=== PATIENT | male | born 1955 | race Caucasian/White ===

== ENCOUNTER 2018-09-01 01:33 | Observation (INO) | payer MEDICARE ==
[2018-09-01] VITALS (7 sets, daily range): BP systolic 113–134; BP diastolic 71–105
[~2018-09-01] VITALS: Ht 175.3 cm; Wt 100.0 kg
[~2018-09-01 01:33] MED LIST: AMIT-189 PO; AMLO2.5T4 PO; ASPI-1265 PO; ATOR-2 PO; CARV-49 PO; CLOP75TA15 PO; CYCL-394 PO; DEXL60CA3 PO; FENO134C PO; HYDR-4353 PO; KRIL1CAP22 PO; LISI10TA4 PO; MELA3TAB PO; MULT-1085 PO; SERT25TA PO; TERA5CAP4 PO; UBID30CA8 PO; WEL75T PO; [UNRECOGNIZED DRUG - CODE] PO
[2018-09-01 02:16] LABS: BASOPHILS # (AUTO) 0.1 X10'3 (0-0.2); EOSINOPHILS # (AUTO) 0.3 X10'3 (0-0.9); EOSINOPHILS % (AUTO) 4.1 % (0-6); HEMATOCRIT 37.2 % (42.0-52.0); HEMOGLOBIN 13.1 g/dl (14.0-17.9); LYMPHOCYTES # (AUTO) 2.3 X10'3 (1.1-4.8); LYMPHOCYTES % (AUTO) 29.8 % (21-51); MEAN CORPUSCULAR HEMOGLOBIN 31.6 PG (27.0-31.0); MEAN CORPUSCULAR HGB CONC 35.2 g/dL (33.0-36.5); MEAN CORPUSCULAR VOLUME 89.8 FL (78-98); MEAN PLATELET VOLUME 7.9 FL (7.4-10.4); MONOCYTES # (AUTO) 0.7 X10'3 (0-0.9); MONOCYTES % (AUTO) 8.9 % (2-12); NEUTROPHILS # (AUTO) 4.3 X10'3 (1.8-7.7); NEUTROPHILS % (AUTO) 56.2 % (42-75); PLATELET COUNT 218 X10'3 (140-440); RED BLOOD COUNT 4.14 X10'6 (4.70-6.10); RED CELL DISTRIBUTION WIDTH 13.4 % (11.5-14.5); WHITE BLOOD COUNT 7.7 X10'3 (4.5-11.0)
[2018-09-01 02:21] LABS: ALANINE AMINOTRANSFERASE 35 U/L (12-78); ALBUMIN 3.7 G/DL (3.4-5.0); ALBUMIN/GLOBULIN RATIO 1.3 (1.1-1.5); ALKALINE PHOSPHATASE 83 IU/L (46-116); ANION GAP 10 (8-16); ASPARTATE AMINO TRANSFERASE 13 U/L (10-37); BILIRUBIN,TOTAL 0.1 MG/DL (0.1-1.0); BLOOD UREA NITROGEN 24 MG/DL (7-18); BUN/CREATININE RATIO 32.9 (5.4-32.0); CALCIUM 8.4 MG/DL (8.5-10.1); CHLORIDE 108 MMOL/L (99-107); CREATININE 0.73 MG/DL (0.60-1.10); GLUCOSE 118 MG/DL (70-104); POTASSIUM 3.4 MMOL/L (3.5-5.1); SODIUM 142 MMOL/L (135-145); TOTAL CARBON DIOXIDE 23.7 MMOL/L (24-32); TOTAL PROTEIN 6.5 G/DL (6.4-8.2); eGFR > 90 ML/MIN
[2018-09-01 02:22] LABS: PARTIAL THROMBOPLASTIN TIME 26 SECONDS (22-32)
[2018-09-01] MEDS ORDERED: aspirin 325mg tablet PO ONE (02:30)
[2018-09-01] MEDS ORDERED: normal saline 1000ml 1,000 ML IV ONE (02:30)
[2018-09-01] MEDS ORDERED: OMEP-50 PO (02:44)
[2018-09-01] MEDS ORDERED: MELO-102 PO (02:56)
[2018-09-01] MEDS ORDERED: EVOL140S INJ (02:56)
[2018-09-01] MEDS ORDERED: potassium Cl 20mEq in NS 1,000 ML IV SCH (03:04)
[2018-09-01] MEDS ORDERED: potassium CL 10mEq/100ml bag 100 ML IV PRN (03:05)
[2018-09-01] MEDS ORDERED: morphine 2 MG/ML inj. syringe IV PRN ×2 (03:05)
[2018-09-01] MEDS ORDERED: potassium Cl 20 mEq SR tablet PO PRN ×2 (03:05)
[2018-09-01] MEDS ORDERED: magnesium 2GM in 50ml NS 50 ML IV PRN (03:05)
[2018-09-01] MEDS ORDERED: magnesium 4gm in 100ml NS 100 ML IV PRN (03:05)
[2018-09-01] MEDS ORDERED: magnesium Cl slow-release 64mg tablet PO PRN (03:05)
[2018-09-01] MEDS ORDERED: potassium Cl 40MEQ/NS 500ml 500 ML IV PRN (03:05)
[2018-09-01] MEDS ORDERED: magnesium hydroxide 30ml (MOM) UD suspension PO PRN (03:05)
[2018-09-01] MEDS ORDERED: bisacodyl 10mg suppository rectal RC PRN (03:05)
[2018-09-01] MEDS ORDERED: mag hydrox/Alum hydrox/simeth 30ml oral suspension PO PRN (03:05)
[2018-09-01] MEDS ORDERED: acetaminophen 325mg tablet PO PRN (03:05)
[2018-09-01] MEDS ORDERED: ondansetron/PF 4mg/2ml inj IV PRN (03:05)
[2018-09-01] MEDS ORDERED: nitroGLYCERIN 0.4mg SUBLingual tab SL PRN ×2 (03:10)
[2018-09-01] MEDS ORDERED: regadenoson 0.4mg/5ml syringe IV ONE ×2 (03:10→09:25)
[2018-09-01] MEDS ORDERED: aminophylline 250mg/10ml inj. IV PRN (03:10)
[2018-09-01] MEDS ORDERED: metoprolol tartrate 1mg/ml inj IV PRN (03:10)
--- NOTE | 2018-09-01 06:38 | NUR ---
Problems reprioritized. Patient report given, questions answered & plan of care reviewed with Lauren PEÑA.
--- NOTE | 2018-09-01 06:46 | NUR ---
Patient in room [facility]. I have received report from clarice gray and had the opportunity to ask questions and assume patient care.
[2018-09-01] MEDS ORDERED: pantoprazole 40 MG vial IV SCH (08:00)
[2018-09-01] MEDS ORDERED: UBIDECARENONE PO SCH (08:00)
[2018-09-01] MEDS ORDERED: atorvastatin 20mg tablet PO SCH (08:00)
[2018-09-01] MEDS ORDERED: terazosin 5mg capsule PO SCH (08:00)
[2018-09-01] MEDS ORDERED: carvedilol 6.25mg tablet PO SCH (08:00)
[2018-09-01] MEDS ORDERED: K and/or MAG REPLACEMENT MC SCH (08:00)
[2018-09-01] MEDS ORDERED: buPROPion 75mg tablet PO SCH (08:00)
[2018-09-01] MEDS ORDERED: sertraline 50mg tablet PO SCH (08:00)
[2018-09-01] MEDS ORDERED: enoxaparin 40mg/0.4ml syringe SUBCUT SCH (08:00)
[2018-09-01] MEDS ORDERED: aspirin 81mg tab.chew PO SCH (08:00)
[2018-09-01] MEDS ORDERED: multivitamins, therapeutics tablet PO SCH (08:00)
[2018-09-01] MEDS ORDERED: aminophylline inj. 10 ML IV ONE (09:25)
[2018-09-01 10:13] LABS: CHOL/HDL RATIO 2.1 (0.00-4.99); CHOLESTEROL 59 MG/DL (0-200); HDL CHOLESTEROL 28 MG/DL (35-60); LDL CHOLESTEROL 14 MG/DL (50-100); TRIGLYCERIDES 149 MG/DL (20-135)
[2018-09-01] MEDS ORDERED: NITR0.4T51 SL (12:54)
--- NOTE | 2018-09-01 13:51 | NUR ---
PT DISCHARGED IN STABLE CONDITION. LEFT FACILITY WITH . IV DC CANULA INTACT. ALL BELONGINGS IN HAND. FOLLOW UP INSTRUCTIONS GIVEN, ALL QUESTIONS ANSWERED. PT AWARE HOME MEDS NEED TO BE TAKEN, HE DID NOT RECEIVE ANY DURING THIS VISIT DUE TO PROCEDURES. Addendum: 09/01/18 at 1353 by Renu Monge RN Amended: Links added.
[2018-09-01] MEDS ORDERED: OMEP40CA37 PO (16:30)
[2018-09-01] MEDS ORDERED: ATOR20TA66 PO (16:30)
--- NOTE | 2018-09-01 16:40 | NUR ---
DR DELGADO CALLED RE MEDICATION CHANGES THAT HE MADE POST DISCHARGE. LEFT MESSAGE ON MACHINE RE: PT NEEDS TO CALL BACK TO DISCUSS SOME CHANGES. MEDICATIONS CALLED INTO [facility].
[2018-09-01] MEDS ORDERED: amitryptiline 50mg tablet PO SCH (21:00)
[2018-09-01] MEDS ORDERED: Melatonin 3mg tablet PO SCH (21:00)
[2018-09-03] MEDS ORDERED: EVOLOCUMAB IJ SCH (08:00)
== END 2018-09-01 13:54 | disposition home or self-care (01) ==
LOC: ER 01:33 → SUR 3N 03:35 → CMPBEDREQ 04:09
PROVIDERS: ADMIT Internal Medicine; ATTEND Family Medicine
DX: R07.89 Other chest pain (principal); K21.9 Gastro-esophageal reflux disease without esophagitis; E78.5 Hyperlipidemia, unspecified; I10 Essential (primary) hypertension; I25.10 Atherosclerotic heart disease of native coronary artery without angina pectoris; F41.9 Anxiety disorder, unspecified; Z79.82 Long term (current) use of aspirin; Z91.09 Other allergy status, other than to drugs and biological substances; E78.00 Pure hypercholesterolemia, unspecified; Z87.442 Personal history of urinary calculi
CPT/HCPCS: 36415; 71045; 78452; 80053; 80061; 84484; 85025; 85610; 85730; 87070; 93005; 93017; 93306; 99284; A9500; G0378; J0280

== ENCOUNTER 2019-04-13 15:45 | Emergency (ER) | payer MEDICARE ==
[~2019-04-13] VITALS: Ht 177.8 cm; Wt 83.1 kg
[~2019-04-13 15:45] MED LIST changes: -ATOR-2 PO; +ATOR20TA66 PO; -CLOP75TA15 PO; -CYCL-394 PO; -DEXL60CA3 PO; +EVOL140S INJ; -FENO134C PO; -HYDR-4353 PO; -LISI10TA4 PO; -MELA3TAB PO; +MELA3TAB64 PO; +NITR0.4T51 SL; -[UNRECOGNIZED DRUG - CODE] PO
[2019-04-13 16:15] VITALS: BP 126/77
[2019-04-13] MEDS ORDERED: LIDOcaine 1% W/epiNEPHrine 1:100,000 20ml vial SQ ONE (16:25)
== END 2019-04-13 17:30 | disposition home or self-care (01) ==
LOC: ER 15:46
DX: S41.112A Laceration without foreign body of left upper arm, initial encounter (principal); E78.00 Pure hypercholesterolemia, unspecified; I10 Essential (primary) hypertension; K21.9 Gastro-esophageal reflux disease without esophagitis; F12.90 Cannabis use, unspecified, uncomplicated; Z87.442 Personal history of urinary calculi; Z98.890 Other specified postprocedural states; Z88.8 Allergy status to other drugs, medicaments and biological substances; Z79.899 Other long term (current) drug therapy
CPT/HCPCS: 12002; 99284

== ENCOUNTER 2019-05-04 22:05 | Emergency (ER) | payer MEDICARE ==
[~2019-05-04] VITALS: Ht 172.7 cm; Wt 100.0 kg
[~2019-05-04 22:05] MED LIST changes: -EVOL140S INJ; +EVOL140S2 INJ
[2019-05-04] MEDS ORDERED: ondansetron/PF 4mg/2ml inj IV ONE (22:45)
[2019-05-04] MEDS ORDERED: magnesium citrate 296ml oral solution PO ONE (22:45)
[2019-05-04] MEDS ORDERED: normal saline 1000ML IV soln IVB ONE (22:45)
[2019-05-04] MEDS ORDERED: ketorolac trometh. 30mg/ml inj. IV ONE (22:45)
[2019-05-04] MEDS ORDERED: fentaNYL/PF 50MCG/1 ML 2ML syringe IV ONE (23:00)
[2019-05-04 23:15] LABS: OCCULT BLOOD STOOL NEGATIVE (Neg)
[2019-05-04 23:18] LABS: BASOPHILS % (AUTO) 0.4 % (0-1); EOSINOPHILS # (AUTO) 0.2 X10'3 (0-0.9); EOSINOPHILS % (AUTO) 1.7 % (0-6); HEMATOCRIT 37.2 % (42.0-52.0); HEMOGLOBIN 12.7 g/dl (14.0-17.9); LYMPHOCYTES # (AUTO) 1.1 X10'3 (1.1-4.8); LYMPHOCYTES % (AUTO) 9.8 % (21-51); MEAN CORPUSCULAR HEMOGLOBIN 31.2 PG (27.0-31.0); MEAN CORPUSCULAR HGB CONC 34.2 g/dL (33.0-36.5); MEAN CORPUSCULAR VOLUME 91.3 FL (78-98); MEAN PLATELET VOLUME 7.9 FL (7.4-10.4); MONOCYTES # (AUTO) 0.8 X10'3 (0-0.9); NEUTROPHILS # (AUTO) 9.1 X10'3 (1.8-7.7); NEUTROPHILS % (AUTO) 81.1 % (42-75); PLATELET COUNT 219 X10'3 (140-440); RED BLOOD COUNT 4.07 X10'6 (4.70-6.10); RED CELL DISTRIBUTION WIDTH 13.3 % (11.5-14.5); WHITE BLOOD COUNT 11.2 X10'3 (4.5-11.0)
[2019-05-04] MEDS ORDERED: ONDA4TAB6 PO (23:30)
[2019-05-04] MEDS ORDERED: KETO10TA2 PO (23:30)
[2019-05-04] MEDS ORDERED: HYDR-4353 PO (23:30)
[2019-05-04] MEDS ORDERED: TADA20TA PO (23:30)
[2019-05-04 23:33] LABS: ALANINE AMINOTRANSFERASE 26 U/L (12-78); ALBUMIN 4.2 G/DL (3.4-5.0); ALBUMIN/GLOBULIN RATIO 1.4 (1.1-1.5); ALKALINE PHOSPHATASE 62 IU/L (46-116); ANION GAP 10 (8-16); ASPARTATE AMINO TRANSFERASE 17 U/L (10-37); BILIRUBIN,TOTAL 0.4 MG/DL (0.1-1.0); BLOOD UREA NITROGEN 20 MG/DL (7-18); BUN/CREATININE RATIO 15.7 (5.4-32.0); CALCIUM 9.2 MG/DL (8.5-10.1); CHLORIDE 106 MMOL/L (99-107); CREATININE 1.27 MG/DL (0.60-1.10); GLUCOSE 127 MG/DL (70-104); LIPASE 70 U/L (73-393); POTASSIUM 3.7 MMOL/L (3.5-5.1); SODIUM 144 MMOL/L (135-145); TOTAL CARBON DIOXIDE 28.1 MMOL/L (24-32); TOTAL PROTEIN 7.3 G/DL (6.4-8.2); eGFR 57 ML/MIN
--- NOTE | 2019-05-04 23:57 | NUR ---
pt never drank his mag citrate
[2019-05-05 00:13] VITALS: BP 127/73
== END 2019-05-05 00:16 | disposition home or self-care (01) ==
LOC: ER 22:05
DX: N20.0 Calculus of kidney (principal); R10.32 Left lower quadrant pain; E78.00 Pure hypercholesterolemia, unspecified; I10 Essential (primary) hypertension; K21.9 Gastro-esophageal reflux disease without esophagitis; F12.90 Cannabis use, unspecified, uncomplicated; Z87.442 Personal history of urinary calculi; Z98.890 Other specified postprocedural states; Z88.8 Allergy status to other drugs, medicaments and biological substances; Z79.82 Long term (current) use of aspirin; Z79.899 Other long term (current) drug therapy
CPT/HCPCS: 36415; 74176; 80053; 82272; 83690; 84484; 85025; 96374; 96375; 99284; J1885; J2405; J3010; J7030

== ENCOUNTER 2019-11-28 08:49 | Emergency (ER) | payer MEDICARE ==
[~2019-11-28] VITALS: Ht 175.3 cm; Wt 105.0 kg
[~2019-11-28 08:49] MED LIST changes: +KETO10TA2 PO; +MELA3TAB39 PO; -MELA3TAB64 PO; +ONDA4TAB6 PO; +TADA20TA PO
[2019-11-28] MEDS ORDERED: proparacaine 0.5% ophthalmic drops 15ml EACHEYE ONE (09:40)
[2019-11-28] MEDS ORDERED: ciprofloxacin 0.3% 2.5ml ophthalmic solution LEFTEYE ONE (09:40)
[2019-11-28 10:32] VITALS: BP 160/90
== END 2019-11-28 10:36 | disposition home or self-care (01) ==
LOC: ER 08:49
DX: T15.02XA Foreign body in cornea, left eye, initial encounter (principal); E78.00 Pure hypercholesterolemia, unspecified; I10 Essential (primary) hypertension; K21.9 Gastro-esophageal reflux disease without esophagitis; F12.90 Cannabis use, unspecified, uncomplicated; Z87.442 Personal history of urinary calculi; Z98.890 Other specified postprocedural states; Z88.4 Allergy status to anesthetic agent; Z79.82 Long term (current) use of aspirin; Z79.899 Other long term (current) drug therapy; Y92.89 Other specified places as the place of occurrence of the external cause
CPT/HCPCS: 65220; 99284

== ENCOUNTER 2020-02-02 15:19 | Emergency (ER) | payer MEDICARE ==
[~2020-02-02] VITALS: Ht 175.3 cm; Wt 106.8 kg
[2020-02-02 15:31] VITALS: BP 134/76
--- NOTE | 2020-02-02 16:55 | NUR ---
Finger splint applied and secured with gretchen. Neurovascular intact.
== END 2020-02-02 17:11 | disposition home or self-care (01) ==
LOC: ER 15:19
DX: S61.211A Laceration without foreign body of left index finger without damage to nail, initial encounter (principal); E78.00 Pure hypercholesterolemia, unspecified; I10 Essential (primary) hypertension; K21.9 Gastro-esophageal reflux disease without esophagitis; Z98.890 Other specified postprocedural states; F12.90 Cannabis use, unspecified, uncomplicated; Z88.8 Allergy status to other drugs, medicaments and biological substances; Z79.82 Long term (current) use of aspirin; Z79.899 Other long term (current) drug therapy; W45.8XXA Other foreign body or object entering through skin, initial encounter; Y93.89 Activity, other specified; Y92.89 Other specified places as the place of occurrence of the external cause; Y99.8 Other external cause status
CPT/HCPCS: 29125; 29130; 99283

== ENCOUNTER → 2020-10-10 | Emergency (ER) | payer MEDICARE ==
[~2020-10-10] VITALS: Ht 177.8 cm; Wt 99.3 kg
[~2020-10-10] MED LIST changes: +CefTRIAXone 2gm/D5W 50ml BAG 50 ML IV ONE; +ONDA4TAB12 PO; +UBID30CA20 PO; -UBID30CA8 PO; +ketorolac trometh. 30mg/ml inj. IV ONE; +normal saline 1000ml 1,000 ML IV ONE; +ondansetron/PF 4mg/2ml inj IV ONE
[2020-10-10 17:02] LABS: BASOPHILS # (AUTO) 0.1 X10'3 (0-0.2); BASOPHILS % (AUTO) 0.5 % (0-1); EOSINOPHILS # (AUTO) 0.1 X10'3 (0-0.9); EOSINOPHILS % (AUTO) 0.8 % (0-6); HEMATOCRIT 40.7 % (42.0-52.0); HEMOGLOBIN 13.8 g/dl (14.0-17.9); LYMPHOCYTES # (AUTO) 1.4 X10'3 (1.1-4.8); LYMPHOCYTES % (AUTO) 10.2 % (21-51); MEAN CORPUSCULAR HEMOGLOBIN 30.3 PG (27.0-31.0); MEAN CORPUSCULAR HGB CONC 33.9 g/dL (33.0-36.5); MEAN CORPUSCULAR VOLUME 89.3 FL (78-98); MONOCYTES # (AUTO) 1.2 X10'3 (0-0.9); MONOCYTES % (AUTO) 8.8 % (2-12); NEUTROPHILS # (AUTO) 10.9 X10'3 (1.8-7.7); NEUTROPHILS % (AUTO) 79.7 % (42-75); PLATELET COUNT 242 X10'3 (140-440); RED BLOOD COUNT 4.56 X10'6 (4.70-6.10); RED CELL DISTRIBUTION WIDTH 13.8 % (11.5-14.5); WHITE BLOOD COUNT 13.7 X10'3 (4.5-11.0)
[2020-10-10 17:18] LABS: ALANINE AMINOTRANSFERASE 30 U/L (12-78); ALBUMIN/GLOBULIN RATIO 1.3 (1.1-1.5); ALKALINE PHOSPHATASE 55 IU/L (46-116); ANION GAP 8 (8-16); ASPARTATE AMINO TRANSFERASE 19 U/L (10-37); BILIRUBIN,TOTAL 0.3 MG/DL (0.1-1.0); BLOOD UREA NITROGEN 28 MG/DL (7-18); BUN/CREATININE RATIO 17.9 (5.4-32.0); CALCIUM 9.2 MG/DL (8.5-10.1); CHLORIDE 106 MMOL/L (99-107); CREATININE 1.56 MG/DL (0.60-1.10); GLUCOSE 117 MG/DL (70-104); LIPASE 59 U/L (73-393); POTASSIUM 3.6 MMOL/L (3.5-5.1); SODIUM 139 MMOL/L (135-145); TOTAL CARBON DIOXIDE 24.7 MMOL/L (24-32); TOTAL PROTEIN 7.2 G/DL (6.4-8.2); eGFR 45 ML/MIN
[2020-10-10 19:40] LABS: CLARITY,URINE CLEAR (Clear); COLOR,URINE YELLOW (Yellow); GLUCOSE, URINE NEGATIVE (Neg); KETONES,URINE NEGATIVE (Neg); LEUKOCYTE ESTERASE ,URINE NEGATIVE (Neg); NITRITES, URINE NEGATIVE (Neg); OCCULT BLOOD,URINE TRACE-INTACT (Neg); PROTEIN,URINE NEGATIVE (Neg); UROBILINOGEN,URINE 0.2 E.U/dL (0.2-1.0)
[2020-10-10 19:46] LABS: UA COLLECTION TYPE URINAL
[2020-10-10 20:12] VITALS: BP 135/83
[2020-10-10 20:29] LABS: BACTERIA,URINE NONE SEEN /HPF (Neg); RBC,URINE 0-2 /HPF (0-2); WBC,URINE 0-4 /HPF (0-4)
[2020-10-10 20:30] LABS: CAL OXALATE CRYSTALS FEW /HPF (NEGATIVE); HYALINE CASTS 0-3 /LPF (NEGATIVE); MUCUS STRANDS FEW /LPF (Neg); SQUAMOUS EPITHELIAL CELL,UR FEW /LPF (FEW)
== END | disposition home or self-care (01) ==
LOC: ER 16:09
DX: N23 Unspecified renal colic (principal); N20.0 Calculus of kidney; N50.812 Left testicular pain; R11.10 Vomiting, unspecified; E78.00 Pure hypercholesterolemia, unspecified; I10 Essential (primary) hypertension; K21.9 Gastro-esophageal reflux disease without esophagitis; F12.90 Cannabis use, unspecified, uncomplicated; Z87.442 Personal history of urinary calculi; Z98.890 Other specified postprocedural states; Z88.8 Allergy status to other drugs, medicaments and biological substances; Z79.82 Long term (current) use of aspirin; Z79.899 Other long term (current) drug therapy
CPT/HCPCS: 36415; 80053; 81001; 83690; 84145; 85025; 96374; 96375; 99284; J1885; J2405; J7030

== ENCOUNTER 2022-03-22 14:07 | Emergency (ER) | payer MEDICARE ==
[~2022-03-22] VITALS: Ht 175.3 cm; Wt 98.6 kg
[~2022-03-22 14:07] MED LIST changes: -AMIT-189 PO; +AMIT50TA15 PO; -CefTRIAXone 2gm/D5W 50ml BAG 50 ML IV ONE; +UBID300C2 PO; -UBID30CA20 PO; -ketorolac trometh. 30mg/ml inj. IV ONE; -normal saline 1000ml 1,000 ML IV ONE; -ondansetron/PF 4mg/2ml inj IV ONE
[2022-03-22 14:28] VITALS: BP 135/82
--- NOTE | 2022-03-22 18:15 | NUR ---
NO ANSWEWR IN LOBBY
--- NOTE | 2022-03-22 19:00 | NUR ---
NO ANSWER IN LOBBY #2
--- NOTE | 2022-03-22 19:23 | NUR ---
NO ANSWER IN lOBBY #3
== END 2022-03-22 19:25 | disposition left against medical advice (07) ==
LOC: ER 14:07
DX: S61.210A Laceration without foreign body of right index finger without damage to nail, initial encounter (principal); Z53.21 Procedure and treatment not carried out due to patient leaving prior to being seen by health care provider; X58.XXXA Exposure to other specified factors, initial encounter; Y93.89 Activity, other specified; Y92.89 Other specified places as the place of occurrence of the external cause; Y99.8 Other external cause status
CPT/HCPCS: 73140

== ENCOUNTER 2024-07-19 14:27 | Emergency (ER) | payer MEDICARE ==
[~2024-07-19] VITALS: Ht 175.3 cm; Wt 78.0 kg
[~2024-07-19 14:27] MED LIST changes: +ONDA-243 PO; -ONDA4TAB12 PO
[2024-07-19 14:42] VITALS: BP 109/69; PULSE 74; RESP 15; O2SAT 97
[2024-07-19 15:43] VITALS: TEMP 99.1
== END 2024-07-19 15:45 | disposition home or self-care (01) ==
LOC: ER 14:28
DX: S01.01XA Laceration without foreign body of scalp, initial encounter (principal); E78.00 Pure hypercholesterolemia, unspecified; I10 Essential (primary) hypertension; Z88.8 Allergy status to other drugs, medicaments and biological substances; W01.0XXA Fall on same level from slipping, tripping and stumbling without subsequent striking against object, initial encounter; Y93.89 Activity, other specified; Y92.89 Other specified places as the place of occurrence of the external cause; Y99.8 Other external cause status
CPT/HCPCS: 12001; 99282